=== PATIENT | female | born 2005 | race Caucasian/White ===

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

== ENCOUNTER 2024-10-27 13:41 | Outpatient (REF) | payer OTHER, SELFPAY ==
--- NOTE | 2024-10-27 13:40 | PAPFT_PTH ---
PATIENT: PEACE VENTURA LOC: [facility] U#:[id number] AGE/SX: 19/F ROOM: RE10/27/[address]: Ofe Heredia DO : 2005 BED: DIS: 10/27/2024 SPEC #: [id number] RECD: 10/27/24 18:20 STATUS: JL REQ #: [id number] DASHAWN: 10/27/24 13:[address]: Ofe Heredia DEPT: [facility] Cytology RECD BY: Lenka Hanson ENTERED: 10/27/24 18:20 SP TYPE: PAPFT OTHR DR: Unknown,Unknown Tissues: 1 - CX/ENDOCX FOR PAP SMEARS Procedures: PAP THIN PREP/[facility] Screening HPV DNA PROBE Comments: [id number] (HPV 16 & 18/45) (CHLAMYDIA/GC)
[2024-10-28 11:45] LABS: Chlamydia Result Negative (Negative); GC Result Negative (Negative)
== END 2024-10-27 13:42 | disposition home or self-care (01) ==
LOC: LBN 13:41
PROVIDERS: Visit Provider Obstetrics & Gynecology
DX: Z12.4 Encounter for screening for malignant neoplasm of cervix (principal)
CPT/HCPCS: 87491; 87591; 88142; 87624